=== PATIENT | female | born 1935 | race Caucasian/White ===

== ENCOUNTER 2019-01-19 16:05 | Observation (INO) | payer MEDICARE, BC ==
--- NOTE | 2019-01-19 16:49 | ED ---
General Adult HPI - General Chief complaint: Shortness of Breath Stated complaint: RUDOLPH Time Seen by Provider: 01/19/19 16:08 Source: patient, EMS Mode of arrival: EMS Limitations: no limitations - History of Present Illness Initial comments: Dictation was produced using Real Time Translation dictation software. please excuse any grammatical, word or spelling errors. Chief Complaint: 83-year-old female multiple comorbidities presents with hypoxia. History of Present Illness: 83-year-old female with multiple comorbidities including COPD. She has no complaints today hours she does present with abnormal oxygen. Patient was having physical therapy and so to have some dyspnea. She normally doesn't wear oxygen however she was started on 4 L nasal cannula. He was called due to patient having persistent hypoxia. EMS on site moved her pulse ox reviewed with the readings. prison stopped her metoprolol lisinopril in the meantime. Patient has no complaints at this time. Patient does not have any shortness of breath or chest pain or any sort of symptoms. She does report feeling at baseline. She has no chest pain. The ROS documented in this emergency department record has been reviewed and confirmed by me. Those systems with pertinent positive or negative responses have been documented in the HPI. All other systems are other negative and/or noncontributory. PHYSICAL EXAM: General Impression: Alert and oriented x3, not in acute distress HEENT: Normocephalic atraumatic, extra-ocular movements intact, pupils equal and reactive to light bilaterally, mucous membranes moist. Cardiovascular: Heart regular rate and rhythm, S1&S2 audible, no murmurs, rubs or gallops Chest: Lungs clear to auscultation bilaterally, no rhonchi, no wheeze, no rales Abdomen: Bowel sounds present, abdomen soft, non-tender, non-distended, no organomegaly Musculoskeletal: Pulses present and equal in all extremities, no peripheral ed oma Motor: no focal deficits noted Neurological: CN II-XII grossly intact, no focal motor or sensory deficits noted Skin: Intact with no visualized rashes Psych: Normal affect and mood ED course: 83-year-old female presents with hypoxia. Patient has no complaints. Physical exam is benign. Vital signs upon arrival are within acceptable limits.Patient mild hypoxic upon initial evaluation and requiring oxygen. However she did appear well. CBC shows no acute processes. Coag panel unremarkable. D-dimer is negative. Metabolic panel is unremarkable. 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 Chest x-ray shows large hiatal hernia and signs of heart failure. Patient's clinical presentation is concerning for hypoxic respiratory failure likely secondary to CHF exacerbation. Patient given Lasix. Patient be admitted to Dr. Rogers. Cardiology on consultation. EKG interpretation: Ventricular rate 100, atrial fibrillation, Q is 72, QTC 420. No WI prolongation, no QTC prolongation, no ST or T-wave changes noted. No old EKG for comparison Overall, this EKG is unremarkable - Related Data Home Medications Medication Instructions Recorded Confirmed Acetaminophen Tab [Tylenol Tab] 1,000 mg PO Q6H 01/19/19 01/19/19 Atorvastatin [Lipitor] 10 mg PO HS 01/19/19 01/19/19 Budesonide [Pulmicort] 0.5 mg INHALATION RT-BID 01/19/19 01/19/19 Cholecalciferol [Vitamin D3 (25 1,000 unit PO DAILY 01/19/19 01/19/19 Mcg = 1000 Iu)] Cyanocobalamin (Vitamin B-12) 1,000 mcg PO DAILY 01/19/19 01/19/19 [Vitamin B-12] Digoxin [Lanoxin] 125 mcg PO Q49H 01/19/19 01/19/19 Furosemide [Lasix] 40 mg PO DAILY 01/19/19 01/19/19 Ipratropium-Albuterol Nebulize 3 ml INHALATION RT-QID 01/19/19 01/19/19 [Duoneb 0.5 mg-3 mg/3 ml Soln] Lisinopril [Zestril] 10 mg PO BID 01/19/19 01/19/19 Metoprolol Tartrate [Lopressor] 25 mg PO BID 01/19/19 01/19/19 Omeprazole 20 mg PO HS 01/19/19 01/19/19 Potassium Chloride ER [K-Dur 10] 10 meq PO DAILY 01/19/19 01/19/19 Sennosides [Senna] 8.6 mg PO HS 01/19/19 01/19/19 Warfarin Sodium [Coumadin] 2 mg PO HS 01/19/19 01/19/19 Allergies Allergy/AdvReac Type Severity Reaction Status Date / Time aspirin Allergy Unknown Verified 01/19/19 16:32 Review of Systems ROS Statement: Those systems with pertinent positive or pertinent negative responses have been documented in the HPI. ROS Other: All systems not noted in ROS Statement are negative. Past Medical History Past Medical History: Atrial Fibrillation, Heart Failure, COPD, GERD/Reflux, Hyperlipidemia, Hypertension Additional Past Medical History / Comment(s): yeast infection, muscle weakness, anemia, constipation, UTI, arthritis, left hip fx, deafness in left ear History of Any Multi-Drug Resistant Organisms: None Reported Past Surgical History: No Surgical Hx Reported Past Psychological History: No Psychological Hx Reported Smoking Status: Never smoker Past Alcohol Use History: None Reported Past Drug Use History: None Reported General Exam Limitations: no limitations Course Vital Signs 01/19/19 16:07 Temperature 98.0 F Pulse Rate 88 Respiratory 18 Rate Blood Pressure 103/75 O2 Sat by Pulse 97 Oximetry Medical Decision Making - Lab Data Result diagrams: 01/19/19 17:06 01/19/19 17:06 Lab Results 01/19/19 01/19/19 01/19/19 Range/Units 17:06 17:06 17:06 WBC 3.4 L (3.8-10.6) k/uL RBC 3.94 (3.80-5.40) m/uL Hgb 12.8 (11.4-16.0) gm/dL Hct 40.9 (34.0-46.0) % MCV 103.7 H (80.0-100.0) fL MCH 32.5 (25.0-35.0) pg MCHC 31.3 (31.0-37.0) g/dL RDW 15.1 (11.5-15.5) % Plt Count 242 (150-450) k/uL Neutrophils % 74 % Lymphocytes % 16 % Monocytes % 6 % Eosinophils % 2 % Basophils % 0 % Neutrophils # 2.5 (1.3-7.7) k/uL Lymphocytes # 0.5 L (1.0-4.8) k/uL Monocytes # 0.2 (0-1.0) k/uL Eosinophils # 0.1 (0-0.7) k/uL Basophils # 0.0 (0-0.2) k/uL Hypochromasia Moderate Macrocytosis Moderate PT 19.3 H (9.0-12.0) sec INR 2.0 H (<1.2) APTT 27.7 (22.0-30.0) sec D-Dimer 0.46 (<0.60) mg/L FEU Sodium 139 (137-145) mmol/L Potassium 4.6 (3.5-5.1) mmol/L Chloride 105 (98-107) mmol/L Carbon Dioxide 30 (22-30) mmol/L Anion Gap 4 mmol/L BUN 16 (7-17) mg/dL Creatinine 0.59 (0.52-1.04) mg/dL Est GFR (CKD-EPI)AfAm >90 (>60 ml/min/1.73 sqM) Est GFR (CKD-EPI)NonAf 85 (>60 ml/min/1.73 sqM) Glucose 96 (74-99) mg/dL Calcium 10.1 (8.4-10.2) mg/dL Magnesium 2.0 (1.6-2.3) mg/dL Total Bilirubin 0.9 (0.2-1.3) mg/dL AST 26 (14-36) U/L ALT 40 (9-52) U/L Alkaline Phosphatase 205 H (38-126) U/L Troponin I (0.000-0.034) ng/mL NT-Pro-B Natriuret Pep pg/mL Total Protein 6.4 (6.3-8.2) g/dL Albumin 3.3 L (3.5-5.0) g/dL 01/19/19 01/19/19 Range/Units 17:06 18:44 WBC (3.8-10.6) k/uL RBC (3.80-5.40) m/uL Hgb (11.4-16.0) gm/dL Hct (34.0-46.0) % MCV (80.0-100.0) fL MCH (25.0-35.0) pg MCHC (31.0-37.0) g/dL RDW (11.5-15.5) % Plt Count (150-450) k/uL Neutrophils % % Lymphocytes % % Monocytes % % Eosinophils % % Basophils % % Neutrophils # (1.3-7.7) k/uL Lymphocytes # (1.0-4.8) k/uL Monocytes # (0-1.0) k/uL Eosinophils # (0-0.7) k/uL Basophils # (0-0.2) k/uL Hypochromasia Macrocytosis PT (9.0-12.0) sec INR (<1.2) APTT (22.0-30.0) sec D-Dimer (<0.60) mg/L FEU Sodium (137-145) mmol/L Potassium (3.5-5.1) mmol/L Chloride (98-107) mmol/L Carbon Dioxide (22-30) mmol/L Anion Gap mmol/L BUN (7-17) mg/dL Creatinine (0.52-1.04) mg/dL Est GFR (CKD-EPI)AfAm (>60 ml/min/1.73 sqM) Est GFR (CKD-EPI)NonAf (>60 ml/min/1.73 sqM) Glucose (74-99) mg/dL Calcium (8.4-10.2) mg/dL Magnesium (1.6-2.3) mg/dL Total Bilirubin (0.2-1.3) mg/dL AST (14-36) U/L ALT (9-52) U/L Alkaline Phosphatase (38-126) U/L Troponin I <0.012 (0.000-0.034) ng/mL NT-Pro-B Natriuret Pep 1970 pg/mL Total Protein (6.3-8.2) g/dL Albumin (3.5-5.0) g/dL Disposition Clinical Impression: Hypoxia, CHF (congestive heart failure) Disposition: ADMITTED IP TO THIS HOSP Condition: Fair Referrals: Alexander Peterson MD [Primary Care Provider] - 1-2 days Decision Time: 19:28
[2019-01-19 17:22] LABS: Basophils % (A) 0 %; Eosinophils # (A) 0.1 k/uL (0-0.7); Eosinophils % (A) 2 %; HCT 40.9 % (34.0-46.0); HGB 12.8 gm/dL (11.4-16.0); Hypochromasia Moderate; Lymphocytes # (A) 0.5 k/uL (1.0-4.8); Lymphocytes % (A) 16 %; MCH 32.5 pg (25.0-35.0); MCHC 31.3 g/dL (31.0-37.0); MCV 103.7 fL (80.0-100.0); Macrocytosis Moderate; Mean Platelet Volume 7.1; Monocytes # (A) 0.2 k/uL (0-1.0); Monocytes % (A) 6 %; Neutrophils # (A) 2.5 k/uL (1.3-7.7); Neutrophils % (A) 74 %; Platelet Count 242 k/uL (150-450); RBC 3.94 m/uL (3.80-5.40); RDW 15.1 % (11.5-15.5); WBC 3.4 k/uL (3.8-10.6)
[2019-01-19 17:31] LABS: ALT 40 U/L (9-52); AST 26 U/L (14-36); African American GFR (CKD) >90 (>60 ml/min/1.73 sqM); Albumin 3.3 g/dL (3.5-5.0); Alkaline Phosphatase 205 U/L (38-126); Anion Gap 4 mmol/L; Blood Urea Nitrogen 16 mg/dL (7-17); Calcium 10.1 mg/dL (8.4-10.2); Carbon Dioxide 30 mmol/L (22-30); Chloride 105 mmol/L (98-107); Glucose 96 mg/dL (74-99); Potassium 4.6 mmol/L (3.5-5.1); Sodium 139 mmol/L (137-145); Total Bilirubin 0.9 mg/dL (0.2-1.3); Total Protein 6.4 g/dL (6.3-8.2)
[2019-01-19 17:32] LABS: D-Dimer 0.46 mg/L FEU (<0.60); Partial Thromboplastin Time 27.7 sec (22.0-30.0); Prothrombin Time 19.3 sec (9.0-12.0)
--- NOTE | 2019-01-19 17:37 | XR ---
EXAMINATION TYPE: XR chest 2V DATE OF EXAM: 01/19/2019 COMPARISON: NONE HISTORY: Short of breath TECHNIQUE: Frontal and lateral views of the chest are obtained. FINDINGS: There is poor inspiration. There is a large hiatal hernia. There is mild pulmonary congest ion. Heart is enlarged. There is some blunting of the costophrenic angles. There is coarsening of int erstitial markings. IMPRESSION: Large hiatal hernia. There is probably minimal heart failure.
[2019-01-19] MEDS ORDERED: FUROSEMIDE 10 MG/ML 4 ML VIAL IV STA (19:25)
[2019-01-19] MEDS ORDERED: ATORVASTATIN 10 MG TAB PO SCH (21:00)
[2019-01-19] MEDS ORDERED: PANTOPRAZOLE 40 MG TABLET PO SCH (21:00)
[2019-01-19] MEDS ORDERED: WARFARIN 2 MG TAB PO SCH (21:00)
[2019-01-19] MEDS: LISINOPRIL 10 MG TAB PO SCH (21:45)
[2019-01-19] MEDS: METOPROLOL TARTRATE 25 MG TAB PO SCH (21:47)
[2019-01-19] MEDS: FUROSEMIDE 10 MG/ML 4 ML VIAL IV SCH (21:51)
[2019-01-20 06:37] LABS: Basophils % (A) 0 %; Eosinophils % (A) 1 %; HCT 38.7 % (34.0-46.0); HGB 12.1 gm/dL (11.4-16.0); Hypochromasia Moderate; Lymphocytes # (A) 0.5 k/uL (1.0-4.8); Lymphocytes % (A) 16 %; MCH 32.4 pg (25.0-35.0); MCHC 31.2 g/dL (31.0-37.0); MCV 103.8 fL (80.0-100.0); Macrocytosis Moderate; Monocytes # (A) 0.2 k/uL (0-1.0); Monocytes % (A) 6 %; Neutrophils # (A) 2.5 k/uL (1.3-7.7); Neutrophils % (A) 74 %; Platelet Count 211 k/uL (150-450); RBC 3.73 m/uL (3.80-5.40); RDW 14.9 % (11.5-15.5); WBC 3.3 k/uL (3.8-10.6)
[2019-01-20 06:53] LABS: ALT 35 U/L (9-52); AST 24 U/L (14-36); African American GFR (CKD) >90 (>60 ml/min/1.73 sqM); Albumin 2.8 g/dL (3.5-5.0); Alkaline Phosphatase 156 U/L (38-126); Anion Gap 3 mmol/L; Blood Urea Nitrogen 16 mg/dL (7-17); Calcium 9.5 mg/dL (8.4-10.2); Carbon Dioxide 31 mmol/L (22-30); Chloride 105 mmol/L (98-107); Glucose 94 mg/dL (74-99); Magnesium 1.9 mg/dL (1.6-2.3); Potassium 4.4 mmol/L (3.5-5.1); Sodium 139 mmol/L (137-145); Total Bilirubin 0.9 mg/dL (0.2-1.3); Total Protein 5.7 g/dL (6.3-8.2)
[2019-01-20 08:47] VITALS: RESP 18
[2019-01-20] MEDS ORDERED: DIGOXIN 125 MCG TAB PO SCH (09:00)
[2019-01-20] MEDS ORDERED: FUROSEMIDE 40 MG TAB PO SCH ×2 (09:00)
--- NOTE | 2019-01-20 09:17 | P.CRDCN ---
History of Present Illness History of present illness: This is a pleasant 83-year-old female past medical history significant for chronic persistent atrial fibrillation on long-term anticoagulation, COPD, hypertension, dyslipidemia who recently underwent left hip surgery. She was at [facility] for rehabilitation and yesterday afternoon was complaining of some shortness of breath. Per the nurse staff a middle-aged was unable to get oxygen saturations above 85% on 4 L. For this reason she was transferred to the hospital for further evaluation. Oxygen saturation obtained on arrival to the emergency department on room air was 90%. She is seen and examined laying flat in no acute distress. With minimal exertion such as sitting up in bed she does seem more dyspneic. She denies symptoms of chest discomfort, palpitations, nausea, dizziness, vomiting or diaphoresis. She has been started on Lasix IV 40 mg twice a day in the emergency department. EKG reveals atrial fibrillation with controlled ventricular response. Chest x-ray reveals a large hiatal hernia with mild pulmonary congestion and blunting of the costophrenic angles. Laboratory data reviewed, WBC 3.3, hemoglobin 12.1, platelets 211, INR 2.0, d- dimer 0.46, sodium 139, potassium 4.4, creatinine 0.58, magnesium 1.9, cardiac enzymes negative 1, NT proBNP 1970. Current cardiac medications include Coumadin, Lopressor 25 mg twice a day, lisinopril 10 mg twice a day, Lasix 40 mg daily, digoxin 125 g every other day and atorvastatin 10 mg daily. Most recent echocardiogram obtained in the office in 2012 reveals preserved left ventricular systolic function with ejection fraction 55%, mild mitral regurgitation, mildly calcified aortic valve, mild to moderate tricuspid regurgitation and mild pulmonary hypertension with a PA SP of 43 mmHg. At the time of my exam: CONSTITUTIONAL: Denies fever. Denies chills. EYES: Denies blurred vision. Denies vision changes. Denies eye pain. EARS, NOSE, MOUTH & THROAT: Denies headache. Denies sore throat. Denies ear pain. CARDIOVASCULAR: Denies chest pain. Complains of shortness of breath. Denies orthopnea. Denies PND. Denies palpitations. RESPIRATORY: Denies cough. GASTROINTESTINAL: Denies abdominal pain. Denies diarrhea. Denies constipation. Denies nausea. Denies vomiting. MUSCULOSKELETAL: Denies myalgias. INTEGUMENTARY: Denies pruitis. Denies rash. NEUROLOGIC: Denies numbness. Denies tingling. Denies weakness. PSYCHIATRIC: Denies anxiety. Denies depression. ENDOCRINE: Denies fatigue. Denies weight change. Denies polydipsia. Denies polyurina. GENITOURINARY: Denies burning, hematuria or urgency with micturation. HEMATOLOGIC: Denies history of anemia. Denies bleeding. Blood pressure 103/75 heart rate 96 afebrile maintaining oxygen saturation on room air GENERAL: This is a 83-year-old female in no apparent distress at the time of my examination. HEENT: Head is atraumatic, normocephalic. Pupils are equal, round. Sclerae anicteric. Conjunctivae are clear. Mucous membranes of the mouth are moist. Neck is supple. There is no jugular venous distention. No carotid bruit is heard. LUNGS: Bibasilar coarse rales, no rhonchi or wheezes. No chest wall tenderness is noted on palpation or with deep breathing. HEART: Irregular rate and rhythm with faint systolic ejection murmur at the left sternal border, no rubs or gallops. S1 and S2 heard. ABDOMEN: Soft, nontender. Bowel sounds are heard. No organomegaly noted. EXTREMITIES: Trace bilateral lower extremity peripheral edema and no calf te nderness noted. VASCULAR: Radial and dorsalis pedis pulses palpated, no evidence of clubbing. NEUROLOGIC: Patient is awake, alert and oriented x3. ASSESSMENT Acute on chronic diastolic heart failure, mild exacerbation Chronic persistent atrial fibrillation on long-term anticoagulation with contr olled ventricular response Hypertension Dyslipidemia COPD Pulmonary hypertension with tricuspid regurgitation PLAN Obtain 2-D echocardiogram and Doppler study to assess cardiac structure and function. Continue IV Lasix. Consider consultation with pulmonary services as this is very mild exacerbation of COPD and may be some underlying pulmonary fibrosis. Repeat kidney function and electrolytes in the morning. Document intake and output along with daily weights. Further recommendations to follow based on clinical course. Thank you kindly for this consultation. Nurse Practitioner note has been reviewed, I agree with a documented findings and plan of care. Patient was seen and examined. Past Medical History Past Medical History: Atrial Fibrillation, Heart Failure, COPD, GERD/Reflux, Hyperlipidemia, Hypertension Additional Past Medical History / Comment(s): yeast infection, muscle weakness, anemia, constipation, UTI, arthritis, left hip fx, deafness in left ear History of Any Multi-Drug Resistant Organisms: None Reported Past Surgical History: No Surgical Hx Reported Past Anesthesia/Blood Transfusion Reactions: No Reported Reaction Past Psychological History: No Psychological Hx Reported Smoking Status: Never smoker Past Alcohol Use History: None Reported Past Drug Use History: None Reported Medications and Allergies Home Medications Medication Instructions Recorded Confirmed Type Acetaminophen Tab [Tylenol Tab] 1,000 mg PO Q6H 01/19/19 01/19/19 History Atorvastatin [Lipitor] 10 mg PO HS 01/19/19 01/19/19 History Budesonide [Pulmicort] 0.5 mg INHALATION RT-BID 01/19/19 01/19/19 History Cholecalciferol [Vitamin D3 (25 1,000 unit PO DAILY 01/19/19 01/19/19 History Mcg = 1000 Iu)] Cyanocobalamin (Vitamin B-12) 1,000 mcg PO DAILY 01/19/19 01/19/19 History [Vitamin B-12] Digoxin [Lanoxin] 125 mcg PO Q49H 01/19/19 01/19/19 History Furosemide [Lasix] 40 mg PO DAILY 01/19/19 01/19/19 History Ipratropium-Albuterol Nebulize 3 ml INHALATION RT-QID 01/19/19 01/19/19 History [Duoneb 0.5 mg-3 mg/3 ml Soln] Lisinopril [Zestril] 10 mg PO BID 01/19/19 01/19/19 History Metoprolol Tartrate [Lopressor] 25 mg PO BID 01/19/19 01/19/19 History Omeprazole 20 mg PO HS 01/19/19 01/19/19 History Potassium Chloride ER [K-Dur 10] 10 meq PO DAILY 01/19/19 01/19/19 History Sennosides [Senna] 8.6 mg PO HS 01/19/19 01/19/19 History Warfarin Sodium [Coumadin] 2 mg PO HS 01/19/19 01/19/19 History Allergies Allergy/AdvReac Type Severity Reaction Status Date / Time aspirin Allergy Unknown Verified 01/19/19 16:32 Physical Exam Vitals: Vital Signs Temp Pulse Pulse Resp BP BP Pulse Ox 01/20/19 08:00 98.1 F 88 18 119/83 100 01/20/19 07:58 83 16 01/20/19 04:00 98.3 F 83 16 118/87 96 01/20/19 00:00 97.9 F 84 18 129/84 95 01/19/19 23:35 98.6 F 81 16 120/87 98 01/19/19 22:23 99 20 111/74 97 01/19/19 19:40 98.7 F 91 20 101/67 01/19/19 19:30 96 17 106/74 01/19/19 19:20 99 16 106/74 97 01/19/19 19:10 99 18 105/70 92 L 01/19/19 19:00 100 20 120/85 01/19/19 18:50 97 16 120/85 01/19/19 18:40 95 20 121/82 98 01/19/19 18:30 98 26 H 116/78 01/19/19 18:20 99 18 116/78 01/19/19 18:10 99 20 115/83 98 01/19/19 18:00 104 H 17 109/77 96 01/19/19 17:50 100 20 109/77 01/19/19 17:40 98 20 108/77 01/19/19 17:30 100 18 106/77 01/19/19 17:20 106/77 01/19/19 17:10 102 H 20 107/74 99 01/19/19 17:00 98 20 106/79 01/19/19 16:50 100 20 106/79 01/19/19 16:40 87 16 100/72 01/19/19 16:30 96 19 103/75 95 01/19/19 16:20 100 18 103/75 96 01/19/19 16:15 20 01/19/19 16:11 90 L 01/19/19 16:07 98.0 F 88 18 103/75 97 Intake and Output 01/19/19 01/20/19 01/20/19 22:59 06:59 14:59 Other: Voiding Method Diaper Diaper # Voids 1 1 Weight 74 kg 56.9 kg Results 01/20/19 06:06 01/20/19 06:06 Cardiac Enzymes 01/19/19 01/19/19 01/20/19 Range/Units 17:06 17:06 06:06 AST 26 24 (14-36) U/L Troponin I <0.012 (0.000-0.034) ng/mL Coagulation 01/19/19 Range/Units 17:06 PT 19.3 H (9.0-12.0) sec APTT 27.7 (22.0-30.0) sec CBC 01/19/19 01/20/19 Range/Units 17:06 06:06 WBC 3.4 L 3.3 L (3.8-10.6) k/uL RBC 3.94 3.73 L (3.80-5.40) m/uL Hgb 12.8 12.1 (11.4-16.0) gm/dL Hct 40.9 38.7 (34.0-46.0) % Plt Count 242 211 (150-450) k/uL Comprehensive Metabolic Panel 01/19/19 01/20/19 Range/Units 17:06 06:06 Sodium 139 139 (137-145) mmol/L Potassium 4.6 4.4 (3.5-5.1) mmol/L Chloride 105 105 (98-107) mmol/L Carbon Dioxide 30 31 H (22-30) mmol/L BUN 16 16 (7-17) mg/dL Creatinine 0.59 0.58 (0.52-1.04) mg/dL Glucose 96 94 (74-99) mg/dL Calcium 10.1 9.5 (8.4-10.2) mg/dL AST 26 24 (14-36) U/L ALT 40 35 (9-52) U/L Alkaline Phosphatase 205 H 156 H (38-126) U/L Total Protein 6.4 5.7 L (6.3-8.2) g/dL Albumin 3.3 L 2.8 L (3.5-5.0) g/dL Current Medications Generic Name Dose Route Start Last Admin Trade Name Freq PRN Reason Stop Dose Admin Atorvastatin Calcium 10 mg 01/19/19 21:00 01/19/19 21:45 Lipitor PO 10 mg HS SUZIE Administration Digoxin 125 mcg 01/20/19 09:00 Lanoxin PO Q48H SUZIE Furosemide 40 mg 01/19/19 21:00 01/19/19 21:51 Lasix IV 40 mg Q12HR SUZIE Administration Lisinopril 10 mg 01/19/19 21:00 01/19/19 21:45 Zestril PO 10 mg BID SUZIE Administration Metoprolol Tartrate 25 mg 01/19/19 21:00 01/19/19 21:47 Lopressor PO 25 mg BID SUZIE Administration Pantoprazole Sodium 40 mg 01/19/19 21:00 01/19/19 21:46 Protonix PO 40 mg HS SUZIE Administration Warfarin Sodium 2 mg 01/19/19 21:00 01/19/19 21:46 Coumadin PO 2 mg HS SUZIE Administration Intake and Output 01/19/19 01/20/19 01/20/19 22:59 06:59 14:59 Other: Voiding Method Diaper Diaper # Voids 1 1 Weight 74 kg 56.9 kg 01/20/19 06:06 01/20/19 06:06
[2019-01-20] MEDS: FUROSEMIDE 10 MG/ML 4 ML VIAL IV SCH (09:57)
[2019-01-20] MEDS: METOPROLOL TARTRATE 25 MG TAB PO SCH (09:57)
[2019-01-20] MEDS: LISINOPRIL 10 MG TAB PO SCH ×2 (09:57→09:59)
[2019-01-20 11:47] VITALS: BMI 20.2
[2019-01-20 12:24] VITALS: BP 114/79; PULSE 87; TEMP 97.5
--- NOTE | 2019-01-20 13:48 | P.HPIM ---
History of Present Illness H&P Date: 01/19/19 Chief Complaint: dyspnea This is an 83-year-old female one of Dr. Alexander Peterson with a previous medical history significant for chronic atrial fibrillation, chronic diastolic heart failure, hypertension and hypertensive cardiovascular disease, hyperlipidemia, history of osteoarthritis, GERD, COPD, patient was at [facility] in the rehabilitation after left hip fracture, and she was supposed to be discharged home in the next 24 hours, however she developed to have mild shortness of breath and the staff became worried and the she was transferred to [facility] for evaluation had a chest x-ray just showed minimal pulmonary vascular congestion with large hiatal hernia without evidence of acute pulmonary edema, her BNP was slightly elevated, patient was given Lasix in the emergency department she was started on Lasix 40 mg IV push every 12 hours, she was seen in consultation by cardiology was recommended to treat the patient with IV diuretics and to continue her rest of medication, patient also would have an echocardiogram for evaluation of the LV function as her last echocardiogram was in 2012 that showed LV function 55-60% with mild mitral regurgitation and mild pulmonary hypertension. Review of Systems Constitutional: Denies anorexia, Denies chronic headaches, Denies lethargy, Denies malaise, Denies weakness, Denies weight gain Eyes: denies blurred vision, denies bulging eye, denies decreased vision Ears: bilateral: decreased hearing Ears, nose, mouth and throat: Denies dysphagia, Denies neck lump, Denies swelling in throat, Denies sore throat Cardiovascular: Reports decreased exercise tolerance, Reports dyspnea on exertion, Reports rapid heart beat, Reports shortness of breath, Denies chest pain, Denies edema, Denies lightheadedness, Denies orthopnea, Denies palpitations, Denies syncope Respiratory: Denies congestion, Denies cough with sputum, Denies home oxygen, Denies sleep apnea, Denies snoring, Denies wheezing Gastrointestinal: Denies abdominal pain, Denies belching, Denies change in bowel habits, Denies heartburn, Denies loss of appetite, Denies melena, Denies nausea, Denies vomiting Genitourinary: Reports nocturia, Denies dysuria Menstruation: Reports postmenopausal Musculoskeletal: Reports fractures, Reports gait dysfunction Musculoskeletal: absent: ankle pain, ankle stiffness, ankle swelling, elbow pain, elbow stiffness, elbow swelling, foot pain, foot stiffness, foot swelling, hand pain, hand stiffness, hand swelling, hip pain, hip stiffness, hip swelling, knee pain, knee stiffness, knee swelling, shoulder pain, shoulder stiffness, shoulder swelling, wrist pain, wrist stiffness, wrist swelling Integumentary: Denies pruritus, Denies rash Neurological: Denies numbness, Denies weakness Psychiatric: Denies anxiety, Denies depression Endocrine: Denies fatigue, Denies weight change Past Medical History Past Medical History: Atrial Fibrillation, Heart Failure, COPD, GERD/Reflux, Hyperlipidemia, Hypertension, Musculoskeletal Disorder, Osteoarthritis (OA) Additional Past Medical History / Comment(s): yeast infection, muscle weakness, anemia, constipation, UTI, arthritis, left hip fx, deafness in left ear History of Any Multi-Drug Resistant Organisms: None Reported Additional Past Surgical History / Comment(s): Bilateral cataract surgery. Past Psychological History: No Psychological Hx Reported Smoking Status: Never smoker Past Alcohol Use History: None Reported Past Drug Use History: None Reported - Past Family History Mother Family Medical History: No Reported History (Mother at age of 81 from old age.) Father Family Medical History: COPD (Father at age 94 from COPD.) Son(s) Family Medical History: No Reported History (Patient has 1 son no major medical problems.) Additional Family Medical History / Comment(s): Patient has no brothers or sisters, she lives with her . Medications and Allergies Home Medications Medication Instructions Recorded Confirmed Type Acetaminophen Tab [Tylenol] 1,000 mg PO Q6H 01/19/19 01/19/19 History Atorvastatin [Lipitor] 10 mg PO HS 01/19/19 01/19/19 History Budesonide [Pulmicort] 0.5 mg INHALATION RT-BID 01/19/19 01/19/19 History Cholecalciferol [Vitamin D3 (25 1,000 unit PO DAILY 01/19/19 01/19/19 History Mcg = 1000 Iu)] Cyanocobalamin (Vitamin B-12) 1,000 mcg PO DAILY 01/19/19 01/19/19 History [Vitamin B-12] Digoxin [Lanoxin] 125 mcg PO Q49H 01/19/19 01/19/19 History Ipratropium-Albuterol Nebulize 3 ml INHALATION RT-QID 01/19/19 01/19/19 History [Duoneb 0.5 mg-3 mg/3 ml Soln] Lisinopril [Zestril] 10 mg PO BID 01/19/19 01/19/19 History Metoprolol Tartrate [Lopressor] 25 mg PO BID 01/19/19 01/19/19 History Omeprazole 20 mg PO HS 01/19/19 01/19/19 History Sennosides [Senna] 8.6 mg PO HS 01/19/19 01/19/19 History Warfarin Sodium [Coumadin] 2 mg PO HS 01/19/19 01/19/19 History Furosemide [Lasix] 40 mg PO BID #60 tab 01/20/19 Rx Potassium Chloride ER [K-Dur 20] 20 meq PO BID #60 tab 01/20/19 Rx Allergies Allergy/AdvReac Type Severity Reaction Status Date / Time aspirin Allergy Unknown Verified 01/19/19 16:32 Physical Exam Vitals: Vital Signs Temp Pulse Resp BP Pulse Ox 01/19/19 19:40 98.7 F 91 20 101/67 01/19/19 19:30 96 17 106/74 01/19/19 19:20 99 16 106/74 97 01/19/19 19:10 99 18 105/70 92 L 01/19/19 19:00 100 20 120/85 01/19/19 18:50 97 16 120/85 01/19/19 18:40 95 20 121/82 98 01/19/19 18:30 98 26 H 116/78 01/19/19 18:20 99 18 116/78 01/19/19 18:10 99 20 115/83 98 01/19/19 18:00 104 H 17 109/77 96 01/19/19 17:50 100 20 109/77 01/19/19 17:40 98 20 108/77 01/19/19 17:30 100 18 106/77 01/19/19 17:20 106/77 01/19/19 17:10 102 H 20 107/74 99 01/19/19 17:00 98 20 106/79 01/19/19 16:50 100 20 106/79 01/19/19 16:40 87 16 100/72 01/19/19 16:30 96 19 103/75 95 01/19/19 16:20 100 18 103/75 96 01/19/19 16:11 90 L 01/19/19 16:07 98.0 F 88 18 103/75 97 Intake and Output 01/19/19 01/19/19 01/19/19 06:59 14:59 22:59 Other: Weight 74 kg - Constitutional General appearance: no acute distress, thin - EENT Eyes: anicteric sclerae, EOMI, PERRLA, no ptosis, no scleral icterus, normal appearance ENT: hard of hearing, NA/AT, normal oropharynx, no thrush Ears: bilateral: normal - Neck Neck: no lymphadenopathy, normal ROM, no rigidity, no stridor, no thyromegaly Carotids: bilateral: upstroke normal - Respiratory Respiratory: bilateral: diminished, prolonged expiration, negative: dullness, rales, rhonchi, wheezing - Cardiovascular Rhythm: irregularly irregular Heart sounds: normal: S1, S2 Abnormal Heart Sounds: systolic murmur - Gastrointestinal General gastrointestinal: normal bowel sounds, soft, no splenomegaly, no tenderness, no umbilical hernia, no ventral hernia - Integumentary Integumentary: normal, normal turgor - Neurologic Neurologic: CNII-XII intact - Musculoskeletal Musculoskeletal: gait normal, strength equal bilaterally - Psychiatric Psychiatric: A&O x's 3, appropriate affect, intact judgment & insight Results CBC & Chem 7: 01/20/19 06:06 01/20/19 06:06 Labs: Abnormal Lab Results - Last 24 Hours (Table) 01/19/19 01/19/19 01/19/19 Range/Units 17:06 17:06 17:06 WBC 3.4 L (3.8-10.6) k/uL MCV 103.7 H (80.0-100.0) fL Lymphocytes # 0.5 L (1.0-4.8) k/uL PT 19.3 H (9.0-12.0) sec INR 2.0 H (<1.2) Alkaline Phosphatase 205 H (38-126) U/L Albumin 3.3 L (3.5-5.0) g/dL Thrombosis Risk Factor Assmnt - DVT/VTE Prophylaxis DVT/VTE Prophylaxis: Pharmacologic Prophylaxis ordered, Mechanical Prophylaxis ordered Assessment and Plan Assessment: Assessment and plan: 1. Mild acute on chronic diastolic heart failure due to A. fib. Continue patient on Lasix 40 mg IV push every 12 hours for the next 24 hours then switch her to oral Lasix 40 mg orally twice every day and potassium supplement, continue lisinopril 10 mg twice every day, continue Lopressor 25 mg orally twice every day, monitor input and output and daily weights, obtain echocardiogram for evaluation of LV function, cardiology consultation, hopefully will be discharged home in the next 24 hours. 2. History of chronic atrial fibrillation. Continue patient on Lopressor 25 mg orally twice every day, digoxin 125 g orally once every day, Coumadin 2 mg orally once every day, INR is therapeutic at 2. 3. Hypertension and hypertensive cardiovascular disease. Continue patient on lisinopril 10 mg orally twice every day as well as Lopressor 25 mg orally twice every day. 4. Hyperlipidemia. Continue patient on Lipitor 10 mg orally once every day. 5. Recent left hip fracture without any surgical intervention she has recovered very well. 6. COPD. Continue patient on DuoNeb 3 mg nebulization 4 times every day as well as Pulmicort 0.5 mg nebulization twice every day. Follow-up with pulmonary medicine as an outpatient. 7. Large had a hernia. Continue conservative management. 8. GERD. Continue patient on omeprazole 20 mg orally once every day. 9. Mild pulmonary hypertension. Continue Lopressor 25 mg orally twice every day as well as Lasix 40 mg orally twice every day. 10. Observation. 11. Home in the next 24 hours.
--- NOTE | 2019-01-20 14:00 | ECHOF ---
Referral Reason:sob MEASUREMENTS -------- HEIGHT: 167.6 cm WEIGHT: 56.7 kg BP: 118/87 RVIDd: 2.1 cm (< 3.3) IVSd: 1.4 cm (0.6 - 1.1) LVIDd: 2.2 cm (3.9 - 5.3) LVPWd: 1.3 cm (0.6 - 1.1) IVSs: 2.0 cm LVIDs: 1.6 cm LVPWs: 2.0 cm LAESV Index (A-L): 34.92 ml/m Ao Diam: 2.6 cm (2.0 - 3.7) AV Cusp: 2.0 cm (1.5 - 2.6) LA Diam: 4.4 cm (2.7 - 3.8) MV EXCURSION: 12.495 mm (> 18.000) MV EF SLOPE: 101 mm/s (70 - 150) EPSS: 0.6 cm MV E Frank: 0.92 m/s MV DecT: 195 ms MV A Frank: 0.39 m/s MV E/A Ratio: 2.34 RAP: 15.00 mmHg RVSP: 48.74 mmHg FINDINGS -------- Sinus rhythm with extra systolic beats. This was a technically good study. The left ventricular size is normal. There is moderate concentric left ventricular hypertrophy. O verall left ventricular systolic function is normal with, an EF between 55 - 60 %. The right ventricle is normal in size. LA is moderately dilated 34-39 ml/m2 The right atrium is moderately enlarged. Aortic valve is trileaflet and is mildly thickened. The mitral valve leaflets are mildly thickened. Mild mitral regurgitation is present. Severe tricuspid regurgitation present. There is mild to moderate pulmonary hypertension. The rig ht ventricular systolic pressure, as measured by Doppler, is 48.74mmHg. There is no pulmonic regurgitation present. The aortic root size is normal. The inferior vena cava is mildly dilated. There is no pericardial effusion. CONCLUSIONS -------- 1. Sinus rhythm with extra systolic beats. 2. This was a technically good study. 3. The left ventricular size is normal. 4. There is moderate concentric left ventricular hypertrophy. 5. Overall left ventricular systolic function is normal with, an EF between 55 - 60 %. 6. The right ventricle is normal in size. 7. LA is moderately dilated 34-39 ml/m2 8. The right atrium is moderately enlarged. 9. Aortic valve is trileaflet and is mildly thickened. 10. The mitral valve leaflets are mildly thickened. 11. Mild mitral regurgitation is present. 12. Severe tricuspid regurgitation present. 13. There is mild to moderate pulmonary hypertension. 14. The right ventricular systolic pressure, as measured by Doppler, is 48.74mmHg. 15. There is no pulmonic regurgitation present. 16. The aortic root size is normal. 17. The inferior vena cava is mildly dilated. 18. There is no pericardial effusion. COMMUNITY RELATIONS REPRESENTATIVE: Monica Lamb RDCS
--- NOTE | 2019-01-20 14:47 | P.DS ---
Providers Date of admission: 01/19/19 19:28 Expected date of discharge: 01/20/19 Attending physician: Kiana Rogers Consults: 01/19/19 19:28 Consult Physician Routine Consulting Provider: Gerald Menendez Consult Reason/Comments: chf Do you want consulting provider notified?: Yes Primary care physician: [facility] Course: This is an 83-year-old female one of Dr. Alexander Peterson with a previous medical history significant for chronic atrial fibrillation, chronic diastolic heart failure, hypertension and hypertensive cardiovascular disease, hyperlipidemia, history of osteoarthritis, GERD, COPD, patient was at [facility] in the rehabilitation after left hip fracture, and she was supposed to be discharged home in the next 24 hours, however she developed to have mild shortness of breath and the staff became worried and the she was transferred to [facility] for evaluation had a chest x-ray just showed minimal pulmonary vascular congestion with large hiatal hernia without evidence of acute pulmonary edema, her BNP was slightly elevated, patient was given Lasix in the emergency department she was started on Lasix 40 mg IV push every 12 hours, she was seen in consultation by cardiology was recommended to treat the patient with IV diuretics and to continue her rest of medication, patient also would have an echocardiogram for evaluation of the LV function as her last echocardiogram was in 2012 that showed LV function 55-60% with mild mitral regurgitation and mild pulmonary hypertension. 01/20: Repeat lab work reveals WBC of 3.3, hemoglobin 12.1, BUN 16 creatinine 0.58. Blood sugars 156. Patient has been seen by barber apprentice with recommendations to continue IV Lasix and consider pulmonary eval. Patient's respiratory status is much improved and she is asking to be discharged home. Patient appears to be stable for discharge. Contacted [facility] [place] and patient can be discharged home from the hospital and son will pickle processor her items at the correction. Patient will be discharged home today in stable condition and plan for follow-up with Dr. Peterson next week. Echocardiogram reveals moderate concentric left ventricular hypertrophy, EF 55-60%, mild mitral regurgitation, severe tricuspid regurgitation, mild to moderate pulmonary hypertension. Discharge diagnoses: 1. Mild acute on chronic diastolic heart failure due to A. fib. 2. History of chronic atrial fibrillation. 3. Hypertension and hypertensive cardiovascular disease. 4. Hyperlipidemia. 5. Recent left hip fracture without any surgical intervention she has recovered very well. 6. COPD. 7. Large hiatal hernia. 8. GERD. 9. Mild to moderate pulmonary hypertension. Discharge plan: Home Impression and plan of care have been directed as dictated by the signing physician. Felecia Fernandez nurse practitioner acting as scribe for signing physician. Patient Condition at Discharge: Good Plan - Discharge Summary Discharge Rx Participant: No New Discharge Prescriptions: New Potassium Chloride ER [K-Dur 20] 20 meq PO BID #60 tab Continue Acetaminophen Tab [Tylenol] 1,000 mg PO Q6H Ipratropium-Albuterol Nebulize [Duoneb 0.5 mg-3 mg/3 ml Soln] 3 ml INHALATION RT-QID Budesonide [Pulmicort] 0.5 mg INHALATION RT-BID Warfarin Sodium [Coumadin] 2 mg PO HS Metoprolol Tartrate [Lopressor] 25 mg PO BID Lisinopril [Zestril] 10 mg PO BID Sennosides [Senna] 8.6 mg PO HS Omeprazole 20 mg PO HS Digoxin [Lanoxin] 125 mcg PO Q49H Cyanocobalamin (Vitamin B-12) [Vitamin B-12] 1,000 mcg PO DAILY Atorvastatin [Lipitor] 10 mg PO HS Cholecalciferol [Vitamin D3 (25 Mcg = 1000 Iu)] 1,000 unit PO DAILY Changed Furosemide [Lasix] 40 mg PO BID #60 tab Discontinued Potassium Chloride ER [K-Dur 10] 10 meq PO DAILY Discharge Medication List Acetaminophen Tab [Tylenol] 1,000 mg PO Q6H 01/19/19 [History] Atorvastatin [Lipitor] 10 mg PO HS 01/19/19 [History] Budesonide [Pulmicort] 0.5 mg INHALATION RT-BID 01/19/19 [History] Cholecalciferol [Vitamin D3 (25 Mcg = 1000 Iu)] 1,000 unit PO DAILY 01/19/19 [History] Cyanocobalamin (Vitamin B-12) [Vitamin B-12] 1,000 mcg PO DAILY 01/19/19 [History] Digoxin [Lanoxin] 125 mcg PO Q49H 01/19/19 [History] Ipratropium-Albuterol Nebulize [Duoneb 0.5 mg-3 mg/3 ml Soln] 3 ml INHALATION RT-QID 01/19/19 [History] Lisinopril [Zestril] 10 mg PO BID 01/19/19 [History] Metoprolol Tartrate [Lopressor] 25 mg PO BID 01/19/19 [History] Omeprazole 20 mg PO HS 01/19/19 [History] Sennosides [Senna] 8.6 mg PO HS 01/19/19 [History] Warfarin Sodium [Coumadin] 2 mg PO HS 01/19/19 [History] Furosemide [Lasix] 40 mg PO BID #60 tab 01/20/19 [Rx] Potassium Chloride ER [K-Dur 20] 20 meq PO BID #60 tab 01/20/19 [Rx] Follow up Appointment(s)/Referral(s): Fabby Jordan MD [STAFF PHYSICIAN] - 02/07/19 1:30 pm Alexander Peterson MD [Primary Care Provider] - 1 Week Discharge Disposition: HOME SELF-CARE
== END 2019-01-20 15:05 | disposition home or self-care (01) ==
LOC: EC 16:05 → 1SOBS 19:28
PROVIDERS: ADMIT Internal Medicine; ATTEND Internal Medicine
DX: I11.0 Hypertensive heart disease with heart failure (principal); I50.33 Acute on chronic diastolic (congestive) heart failure; I48.2 Chronic atrial fibrillation; E78.5 Hyperlipidemia, unspecified; R09.02 Hypoxemia; J44.9 Chronic obstructive pulmonary disease, unspecified; K44.9 Diaphragmatic hernia without obstruction or gangrene; K21.9 Gastro-esophageal reflux disease without esophagitis; I27.20 Pulmonary hypertension, unspecified; M19.90 Unspecified osteoarthritis, unspecified site; H91.92 Unspecified hearing loss, left ear; D64.9 Anemia, unspecified; Z87.440 Personal history of urinary (tract) infections; I07.1 Rheumatic tricuspid insufficiency; K46.9 Unspecified abdominal hernia without obstruction or gangrene; Z87.81 Personal history of (healed) traumatic fracture; Z88.6 Allergy status to analgesic agent; Z79.899 Other long term (current) drug therapy; Z79.01 Long term (current) use of anticoagulants; Z82.5 Family history of asthma and other chronic lower respiratory diseases
CPT/HCPCS: 96376; 96374; 99285; 36415 ×2; 93005; 93306; 85379; 83880; 80053 ×2; 80048; 83735 ×2; 84484; 85025 ×2; 85027; 85610; 85730; 71046; G0378 ×2; J1940 ×2